=== PATIENT | female | born 1970 | race Caucasian/White ===

== ENCOUNTER 2017-12-24 16:46 | Emergency (ER) | payer OTHER, MEDICAID | END 2017-12-24 19:21 | disposition home or self-care (01) | LOC: FTE 16:46 | DX: S90.821A Blister (nonthermal), right foot, initial encounter (principal); I10 Essential (primary) hypertension; F17.210 Nicotine dependence, cigarettes, uncomplicated; W22.8XXA Striking against or struck by other objects, initial encounter; Y92.9 Unspecified place or not applicable | CPT/HCPCS: 73590; 73610-RT; 99284-25 ==

== ENCOUNTER 2018-06-03 03:06 | Emergency (ER) | payer OTHER ==
[2018-06-03] MEDS: IBUPROFEN 600 MG TAB PO (04:02)
[2018-06-03] MEDS: AMOXICILLIN/CLAV 875 MG TAB PO (04:02)
== END 2018-06-03 04:27 | disposition home or self-care (01) ==
LOC: E/R 03:06
DX: H66.001 Acute suppurative otitis media without spontaneous rupture of ear drum, right ear (principal); J01.90 Acute sinusitis, unspecified; J40 Bronchitis, not specified as acute or chronic; I10 Essential (primary) hypertension; Z87.891 Personal history of nicotine dependence
CPT/HCPCS: 99283; Z7610

== ENCOUNTER 2018-08-24 19:33 | Emergency (ER) | payer OTHER ==
[2018-08-24] MEDS: METHYLPREDNISOLONE 125 MG INJ IV (21:47)
[2018-08-24] MEDS: ONDANSETRON 4 MG INJ IV (21:47)
[2018-08-24 23:00] LABS: ADD MAN DIFF? NO
[2018-08-24 23:01] LABS: WHITE BLOOD COUNT 6.4 10^3/ul (4.8-10.8)
[2018-08-24 23:01] LABS: BASOPHILS % 0.5 % (0.0-2.0); EOSINOPHILS # 0.2 10^3/ul (0.0-0.5); EOSINOPHILS % 2.5 % (0.0-7.0); HEMATOCRIT 38.7 % (37.0-47.0); HEMOGLOBIN 12.6 g/dl (12.0-16.0); LYMPHOCYTES # 1.9 10^3/ul (0.8-2.9); LYMPHOCYTES % 30.2 % (15.0-51.0); MEAN CORPUSCULAR HEMOGLOBIN 28.4 pg (29.0-33.0); MEAN CORPUSCULAR HGB CONC 32.6 g/dl (32.0-37.0); MEAN CORPUSCULAR VOLUME 87.2 fl (82.0-101.0); MEAN PLATELET VOLUME 9.8 fl (7.4-10.4); MONOCYTE # 0.5 10^3/ul (0.3-0.9); MONOCYTES % 8.3 % (0.0-11.0); NEUTROPHIL # 3.7 10^3/ul (1.6-7.5); NEUTROPHILS % 58.3 % (39.0-77.0); PLATELET COUNT 225 10^3/UL (140-415); RED BLOOD COUNT 4.44 10^6/ul (4.20-5.40); RED CELL DISTRIBUTION WIDTH 13.1 % (11.5-14.5)
[2018-08-24 23:19] LABS: ALANINE AMINOTRANSFERASE 31 IU/L (13-69); ALBUMIN 3.9 g/dl (3.3-4.9); ALBUMIN/GLOBULIN RATIO 1.25; ALKALINE PHOSPHATASE 82 IU/L (42-121); ANION GAP 8 (5-13); ASPARTATE AMINO TRANSFERASE 25 IU/L (15-46); BILIRUBIN,INDIRECT 0.1 mg/dl (0-1.1); BILIRUBIN,TOTAL 0.1 mg/dl (0.2-1.3); BLOOD UREA NITROGEN 18 mg/dl (7-20); CALCIUM 9.2 mg/dl (8.4-10.2); CARBON DIOXIDE 28 mmol/L (21-31); CHLORIDE 101 mmol/L (97-110); CREATININE 0.77 mg/dl (0.44-1.00); Estimated GFR > 60 mL/min (>60); GLUCOSE 92 mg/dl (70-220); POTASSIUM 4.4 mmol/L (3.5-5.1); SODIUM 137 mmol/L (135-144)
[2018-08-25] MEDS: SOD CHLORIDE 0.9% 100 ML (00:08)
[2018-08-25] MEDS: IOHEXOL 300MG/ML 150 ML BTL (00:08)
[2018-08-25] MEDS: SOD CHLORIDE 0.9% 500 ML IV (01:19)
[2018-08-25] MEDS: TRIMETHOPRIM/SULFAMETHOX (DS) TAB PO (01:19)
[2018-08-25] MEDS: CLINDAMYCIN 600 MG/D5W (PMX) 50 ML IVPB (01:28)
== END 2018-08-25 02:35 | disposition home or self-care (01) ==
LOC: FTE 08-25 02:35
DX: L03.211 Cellulitis of face (principal); I10 Essential (primary) hypertension; F17.210 Nicotine dependence, cigarettes, uncomplicated
CPT/HCPCS: 36415; 70486; 80053; 81025; 85025; 96374; 96375; 99285-25